=== PATIENT | female | born 1960 | race Caucasian/White ===

== ENCOUNTER 2021-04-06 06:54 | Emergency (ER) | payer OTHER ==
[~2021-04-06 06:54] MED LIST: ESTRACE1 MG PO; PERCOCET 5-3251 EACH PO; PROVERA2.5 MG PO; WELLBUTRIN XL150 MG PO
[2021-04-06] MEDS ORDERED: PREDNISONE 20MG20 MG PO (07:41)
[2021-04-06] MEDS ORDERED: CYCLOBENZAPRINE10 MG PO (07:41)
== END 2021-04-06 08:04 | disposition home or self-care (01) ==
LOC: FER 06:54
DX: M54.16 Radiculopathy, lumbar region (principal)
CPT/HCPCS: 72110; J7512